=== PATIENT | female | born 1965 | race African-American/Black ===

== ENCOUNTER 2017-03-31 17:34 | Emergency (ER) | payer OTHER | END 2017-03-31 22:27 | disposition home or self-care (01) | LOC: ER 17:34 | DX: N83.202 Unspecified ovarian cyst, left side (principal); I10 Essential (primary) hypertension; K64.9 Unspecified hemorrhoids; Z90.711 Acquired absence of uterus with remaining cervical stump; Z90.49 Acquired absence of other specified parts of digestive tract; Z98.890 Other specified postprocedural states; Z88.0 Allergy status to penicillin ==

== ENCOUNTER → 2017-07-07 | Outpatient (CLI) | payer OTHER ==
[~2017-07-07] MED LIST: CEFTIN500 MG PO; LEVOTHYROXINE 0.1 MG PO; NORCO 5-325 TA1 EACH PO; PERCOCET 5-3251 EACH PO
== END ==
LOC: MRI 07:35
DX: M48.02 Spinal stenosis, cervical region (principal); M47.892 Other spondylosis, cervical region; M50.21 Other cervical disc displacement, high cervical region; M50.221 Other cervical disc displacement at C4-C5 level

== ENCOUNTER → 2018-07-25 | Outpatient (CLI) | payer OTHER | LOC: ULTRA 08:10 | DX: R22.1 Localized swelling, mass and lump, neck (principal); M54.2 Cervicalgia ==